=== PATIENT | female | born 1975 | race Caucasian/White ===

== ENCOUNTER 2017-05-02 16:42 | Inpatient (IN) | payer MEDICARE ==
[~2017-05-02] VITALS: Ht 175.3 cm; Wt 66.2 kg
[2017-05-02 21:04] VITALS: BP 102/65
[2017-05-02] MEDS ORDERED: QUEtiapine FUMARATE 100 MG TABLET PO PRN (21:15)
[2017-05-02] MEDS ORDERED: ZOLPIDEM TARTRATE 10 MG TABLET PO PRN (21:15)
[2017-05-02] MEDS ORDERED: CLON2 PO (21:24)
[2017-05-02] MEDS ORDERED: QUET100T PO (21:24)
[2017-05-02 21:38] VITALS: BP 110/66
[2017-05-03 00:20] VITALS: BP 113/77
[2017-05-03 08:08] LABS: BASOPHILS # (AUTO) 0.05 K/uL (0.00-0.20); BASOPHILS % (AUTO) 0.7 % (0.0-2.0); EOSINOPHILS # (AUTO) 0.12 K/uL (0.00-0.70); HEMOGLOBIN 14.4 g/dL (12.0-16.0); LYMPHOCYTES # (AUTO) 2.1 K/uL (1.0-4.8); MEAN CORPUSCULAR HEMOGLOBIN 28.4 pg (26.0-34.0); MEAN CORPUSCULAR HGB CONC 32.8 G/dL (31.0-37.0); MEAN CORPUSCULAR VOLUME 86 fL (80-100); MONOCYTES # (AUTO) 0.4 K/uL (0.1-1.0); MONOCYTES % (AUTO) 5.5 % (2.0-9.0); NEUTROPHILS % (AUTO) 65.3 % (40.0-70.0); PLATELET COUNT (AUTO) 349 K/uL (150-450); RED BLOOD CELL COUNT(AUTO) 5.08 MIL/uL (4.00-5.20); RED CELL DISTRIBUTION WIDTH 14.9 % (11.5-14.5)
[2017-05-03 08:20] LABS: WHITE BLOOD COUNT (AUTO) 8.3 K/uL (4.5-11.0)
[2017-05-03 08:54] LABS: ALANINE AMINOTRANSFERASE 23 U/L (12-78); ALBUMIN 3.4 g/dL (3.4-5.0); ANION GAP 10 mmol/L (8-16); ASPARTATE AMINOTRANSFERASE 22 U/L (15-37); BILIRUBIN,TOTAL 0.3 mg/dL (0.1-1.0); CALCIUM, TOTAL 9.1 mg/dL (8.8-10.5); CARBON DIOXIDE 24 mmol/L (22-29); CHLORIDE 105 mmol/L (98-107); CHOL/HDL RATIO 3.2 (3.9-5.7); CREATININE 0.51 mg/dL (0.60-1.30); GLOMERULAR FILTR. RATE CALC > 60 mL/min (>60); POTASSIUM 4.9 mmol/L (3.5-5.1); SODIUM SERUM 139 mmol/L (136-145); TOTAL PROTEIN, SERUM 6.9 g/dL (6.4-8.2); UREA NITROGEN, BLOOD 17 mg/dL (7-18)
[2017-05-03] MEDS: NICOTINE 21 MG/24 HOUR PATCH TD SCH (10:07)
[2017-05-03] MEDS: IBUPROFEN 600 MG TABLET PO PRN (10:53)
[2017-05-03] MEDS ORDERED: LOPERAMIDE HCL 2 MG CAPSULE PO PRN (14:45)
[2017-05-03] MEDS ORDERED: MAG HYDROX/AL HYDROX/SIMETH 30 ML SUSP UDCUP PO PRN (14:45)
[2017-05-03] MEDS ORDERED: MAGNESIUM HYDROXIDE SUSPENSION 30 ML UDCUP PO PRN (14:45)
[2017-05-03] MEDS: PANTOPRAZOLE SODIUM 40 MG DR TABLET PO SCH (14:50)
[2017-05-03 16:16] VITALS: BP 122/86
[2017-05-03] MEDS: LORazepam 2 MG TABLET PO PRN (16:36)
[2017-05-03] MEDS: OLANZapine 5 MG RAPDIS TABLET PO SCH (20:35)
[2017-05-03] MEDS: ONDANSETRON HCL 4 MG TABLET PO PRN (20:35)
[2017-05-04 06:31] VITALS: BP 138/86
[2017-05-04] MEDS: ONDANSETRON HCL 4 MG TABLET PO PRN (06:33)
[2017-05-04] MEDS: FLUoxetine HCL 20 MG CAPSULE PO SCH (09:34)
[2017-05-04] MEDS: PANTOPRAZOLE SODIUM 40 MG DR TABLET PO SCH (09:34)
[2017-05-04] MEDS: NICOTINE 21 MG/24 HOUR PATCH TD SCH (09:35)
[2017-05-04 10:02] VITALS: BP 137/75
[2017-05-04] MEDS: LORazepam 2 MG TABLET PO PRN (10:18)
[2017-05-04] MEDS: IBUPROFEN 600 MG TABLET PO PRN (10:18)
[2017-05-04 18:24] VITALS: BP 133/80
[2017-05-04] MEDS: OLANZapine 5 MG RAPDIS TABLET PO SCH (21:41)
[2017-05-05 00:05] VITALS: BP 140/85
[2017-05-05 08:30] VITALS: BP 121/76
[2017-05-05] MEDS: PANTOPRAZOLE SODIUM 40 MG DR TABLET PO SCH (09:41)
[2017-05-05] MEDS: FLUoxetine HCL 20 MG CAPSULE PO SCH (09:41)
[2017-05-05] MEDS: NICOTINE 21 MG/24 HOUR PATCH TD SCH (09:41)
[2017-05-05] MEDS: IBUPROFEN 600 MG TABLET PO PRN (10:06)
[2017-05-05] MEDS: LORazepam 2 MG TABLET PO PRN (10:06)
[2017-05-05] MEDS: OLANZapine 5 MG RAPDIS TABLET PO SCH (20:33)
[2017-05-06] MEDS: NICOTINE 21 MG/24 HOUR PATCH TD SCH (09:20)
[2017-05-06] MEDS: FLUoxetine HCL 20 MG CAPSULE PO SCH (09:20)
[2017-05-06] MEDS: PANTOPRAZOLE SODIUM 40 MG DR TABLET PO SCH (09:20)
[2017-05-06 10:10] VITALS: BP 133/83
[2017-05-06] MEDS: LORazepam 2 MG TABLET PO PRN (10:12)
[2017-05-06] MEDS: OLANZapine 5 MG RAPDIS TABLET PO SCH (21:13)
[2017-05-06 21:39] VITALS: BP 123/88
[2017-05-07 06:24] VITALS: BP 107/70
[2017-05-07] MEDS: PANTOPRAZOLE SODIUM 40 MG DR TABLET PO SCH (08:10)
[2017-05-07] MEDS: FLUoxetine HCL 20 MG CAPSULE PO SCH (08:10)
[2017-05-07] MEDS: NICOTINE 21 MG/24 HOUR PATCH TD SCH (08:10)
[2017-05-07] MEDS: LORazepam 2 MG TABLET PO PRN (08:15)
[2017-05-07 08:40] VITALS: BP 121/92
[2017-05-07] MEDS: IBUPROFEN 600 MG TABLET PO PRN ×2 (08:44→16:46)
[2017-05-07 09:02] VITALS: BP 121/92
[2017-05-07 16:29] VITALS: BP 104/62
[2017-05-07] MEDS: OLANZapine 5 MG RAPDIS TABLET PO SCH (20:16)
[2017-05-08 06:12] VITALS: BP 101/64
[2017-05-08 08:03] VITALS: BP 106/60
[2017-05-08] MEDS: NICOTINE 21 MG/24 HOUR PATCH TD SCH (08:44)
[2017-05-08] MEDS: LORazepam 2 MG TABLET PO PRN (08:44)
[2017-05-08] MEDS: PANTOPRAZOLE SODIUM 40 MG DR TABLET PO SCH (08:44)
[2017-05-08] MEDS: FLUoxetine HCL 20 MG CAPSULE PO SCH (08:44)
[2017-05-08] MEDS ORDERED: OLAN5Z PO (10:52)
[2017-05-08] MEDS ORDERED: FLUO-191 PO (10:52)
[2017-05-08] MEDS ORDERED: OMEP20 PO (10:52)
== END 2017-05-08 11:15 | disposition home or self-care (01) | DRG 885 ==
LOC: B2S 21:37
PROVIDERS: ADMIT Psychiatry & Neurology Psychiatry; ATTEND Psychiatry & Neurology Psychiatry
DX: F25.0 Schizoaffective disorder, bipolar type (principal); R45.851 Suicidal ideations; F15.20 Other stimulant dependence, uncomplicated; G89.29 Other chronic pain; R45.84 Anhedonia; M54.9 Dorsalgia, unspecified; R45.87 Impulsiveness; F17.200 Nicotine dependence, unspecified, uncomplicated; Z59.0 Homelessness; J44.9 Chronic obstructive pulmonary disease, unspecified; Z79.899 Other long term (current) drug therapy; Z87.898 Personal history of other specified conditions; L30.8 Other specified dermatitis
CPT/HCPCS: 84436; Q0162